=== PATIENT | male | born 1955 | race Hispanic/Latino ===

== ENCOUNTER 2017-04-27 09:37 | Emergency (ER) | payer SELFPAY ==
[~2017-04-27] VITALS: Ht 180.3 cm; Wt 100.0 kg
[~2017-04-27 09:37] MED LIST: AMLODIPINE5 MG PO; ASPIRIN LOW DOS81 M2 PO; ATORVASTATIN CA40 MG PO; CARVEDILOL6.25 MG PO; HYDROCHLORO25 MG/TAB PO; LISINOPRIL20 M1 PO; LORTAB5 PO; NADOLOL20 MG OR; ULTRAM50 M1 OR
[2017-04-27] MEDS ORDERED: AMLODIPINE5 MG PO (10:02)
[2017-04-27 10:09] LABS: HEMATOCRIT 50.4 % (39.0-50.0); HEMOGLOBIN 16.5 g/dl (14.0-18.0); IMMATURE GRANULOCYTES 0.6 % (0.0-1.0); MEAN CELL VOLUME 96.7 fL CALC (80.0-100.0); MEAN CORPUSCULAR HGB 31.7 pG CALC (26.0-32.0); MEAN CORPUSCULAR HGB CONC 32.7 g/L CALC (32.0-36.0); NEUT# 6.07 thou/uL (1.82-7.42); RED BLOOD COUNT 5.21 mill/uL (4.70-6.10); RED CELL DISTRI WIDTH 13.8 % (11.5-15.5)
[2017-04-27 10:24] LABS: ALBUMIN 4.5 g/dL (3.2-5.0); ALKALINE PHOSPHATASE 82 u/l (38-126); ANION GAP 17 (6-22 (CALC)); BILIRUBIN, TOTAL 0.6 mg/dL (0.0-1.4); BUN 10 mg/dL (8-23); BUN/CREATININE RATIO 12 (12-20 (CALC)); CARBON DIOXIDE 26 mmol/l (22-30); CHLORIDE 107 mmol/l (95-108); CREATININE 0.9 mg/dL (0.7-1.3); GFR > 60 ML/MIN (>=60 (CALC)); GFR FOR AFR.AMER. > 60 ML/MIN (>=60 (CALC)); POTASSIUM 4.4 mmol/l (3.5-5.1); SGOT/AST 21 u/l (19-48); SGPT/ALT 24 u/l (11-66); SODIUM 145 mmol/l (137-146)
[2017-04-27 10:34] LABS: MYOGLOBIN 30 ng/mL (0 - 121)
[2017-04-27] MEDS ORDERED: LISINOPRIL40 MG PO (10:58)
[2017-04-27] MEDS ORDERED: AMLODIPINE10 MG PO (10:58)
[2017-04-27 11:17] VITALS: BP 133/83
== END 2017-04-27 11:17 | disposition home or self-care (01) | DRG 305 ==
LOC: ED 09:37
PROVIDERS: Emergency Medicine
DX: I16.0 Hypertensive urgency (principal); R06.02 Shortness of breath; Z86.73 Personal history of transient ischemic attack (TIA), and cerebral infarction without residual deficits; R94.31 Abnormal electrocardiogram [ECG] [EKG]